=== PATIENT | female | born 1990 | race Two or more races ===

== ENCOUNTER → 2024-11-06 | Outpatient (CLI) | payer OTHER, SELFPAY ==
--- NOTE | 2024-11-06 11:30 | XR_ITS ---
Examination: Abdomen sonogram, complete Date and time of exam: November 06, 2024 1106 hours INDICATIONS: Right upper abdominal pain beginning 3 weeks ago. Technique: Multiple real-time grayscale transabdominal sonographic images of the abdomen have been obtained. Findings: Normal gallbladder Normal common bile duct 0.3 cm Pancreatic head 2.2 cm Aorta not enlarged. Liver 13.1 cm fatty infiltration no focal liver lesions Normal hepatopedal portal venous flow Patent IVC Right kidney 9.2 cm cortex 1.4 cm Left kidney 10.2 cm cortex 2.2 cm Spleen 8.0 cm IMPRESSION: Normal gallbladder Liver normal size fatty infiltration
== END | disposition home or self-care (01) ==
PROVIDERS: PCP Nurse Practitioner Family; Referring Provider Nurse Practitioner Family; Visit Provider Nurse Practitioner Family
DX: K76.0 Fatty (change of) liver, not elsewhere classified (principal)
CPT/HCPCS: 76700

== ENCOUNTER → 2025-03-02 | Outpatient (CLI) | payer OTHER, SELFPAY ==
--- NOTE | 2025-03-02 09:44 | XR_ITS ---
EXAMINATION: AP pelvis single view TECHNIQUE: AP supine pelvis single view Date and time: 2024, 0949 hours INDICATIONS: Diarrhea 3 weeks stomach cramping 1 week, pelvic pain, history pelvic surgery 1 year ago for hernia FINDINGS: Surgical clips left pelvis Hip joints well-maintained Intact hips and bones of the pelvis No pelvic mass IMPRESSION: No pelvic mass
--- NOTE | 2025-03-02 09:44 | XR_ITS ---
Examination: Abdomen AP single view Technique: AP portable supine abdomen, single view Exam date and time: March 02, 2025, 0949 hours INDICATIONS: Diarrhea stomach cramping 3 weeks FINDINGS: Nonobstructive bowel gas pattern. No free air. No abnormal calcific densities. Osseous structures intact IMPRESSION: Nonobstructive bowel gas pattern
[2025-03-02 11:29] LABS: Urea Breath Test Negative (Negative)
[2025-03-06 23:34] LABS: Source STOOL
[2025-03-07 06:33] LABS: Helicobacter pylori Ag, Stool* NOT DETECTED (NOT DETECTED)
== END | disposition home or self-care (01) ==
LOC: CDIM 09:31 → COPL 10:05
PROVIDERS: PCP Internal Medicine; Referring Provider Internal Medicine; Visit Provider Radiology Diagnostic Radiology
DX: R19.7 Diarrhea, unspecified (principal)
CPT/HCPCS: 72170; 74018; 83013; 83014; 87177; 87209; 87338